=== PATIENT | female | born 1945 | race Caucasian/White ===

== ENCOUNTER 2016-10-02 05:07 | Inpatient (IN) | payer MEDICARE, BC ==
[2016-10-01 10:26] LABS: HEMATOCRIT 34.5 % (36.0-48.0); HEMOGLOBIN 11.4 g/dL (12-16); MCH 31.3 pg (26.0-34.0); MCV 94.8 fL (80.0-100.0); MEAN PLATELET VOLUME 8.7 fL (7.4-10.4); RBC 3.64 10x6/uL (4.00-5.40); RDW 12.8 % (11.5-14.5); WBC 5.7 10x3/uL (4.8-10.8)
[2016-10-01 10:47] LABS: ANION GAP 13.7 mmol/L (8-16); CALCIUM 9.5 mg/dL (8.5-10.1); CARBON DIOXIDE 27.7 mmol/L (21.0-32.0); CREATININE - SERUM 1.3 mg/dL (0.6-1.3); POTASSIUM - SERUM 4.4 mmol/L (3.5-5.1)
[~2016-10-02] VITALS: Ht 167.6 cm; Wt 72.7 kg
--- NOTE | ~2016-10-02 | DS ---
PATIENT:ERICA CANTRELL :45 MEDICAL RECORD: [id number] DISCHARGE SUMMARY ADMISSION DATE: 10/02/16 DISCHARGE DATE: 10/03/16 ADMISSION DIAGNOSES: Lumbar spinal stenosis and foraminal stenosis, L4-L5 on the right. DISCHARGE DIAGNOSES: Status post lumbar laminectomy with synovial cyst resection. HOSPITAL COURSE: The patient was admitted as an outpatient from the outpatient department and underwent a lumbar laminectomy with resection of synovial cyst. She was admitted for 1 day and then had an uneventful postoperative course and was ambulated with physical therapy and felt ready for discharge by postoperative day #2. She tolerated oral diet and activity with physical therapy. She was discharge home and is to follow up with Dr. Hernandez in 1 week for removal of marybeth. She is to follow up with Dr. Hernandez in 4 weeks. No change in medications. TRANSINT:[id number] Voice Confirmation ID: [id number] DOCUMENT ID: [id number] LUNA HERNANDEZ MD CC: [id number] DICTATION DATE: 10/30/16 142 PRESIDING STEWARD: 10/31/16 0147 DIS IN 10/03/16 [id number] [place] [address]
[~2016-10-02 05:07] MED LIST: AMBIEN5 MG PO; ASPIRIN EC81 M1 PO; ATIVAN0.5 MG PO; CALCIUM 600+D T1 TA1 PO; ELAVIL10 MG PO; FLUTICASONE PRO16 GM NASAL; GLYCOLAX527 GM PO; HYZAAR 100-25 T1 TAB PO; LIBRIUM5 MG PO; MOBIC7.5 MG PO; MULTI-DAY VITAM1 TAB PO; NORMODYNE / TR300 MG PO; OMEPRAZOLE20 M1 PO; PEPCID20 MG PO; REMERON15 MG PO; ROBAXIN-750750 MG PO; SYNTHROID100 MCG PO; ULTRACET TABLET1 TAB PO; VITAMIN B-121000 MCG PO; VITAMIN B650 MG PO
[2016-10-02 08:19] VITALS: BP 163/97; BMI 25.8
[2016-10-02 12:50] VITALS: BP 153/89
--- NOTE | 2016-10-02 13:00 | NUR ---
RECIEVED TO ROOM 2211 FROM OR S/P LUMBAR ZAVALA PER DR HERNANDEZ DRESSING TO MIDLINE LUMBAR INTACT
[2016-10-02 15:55] VITALS: Ht 167.6 cm; Wt 72.7 kg
[2016-10-02 16:32] VITALS: BP 151/65
[2016-10-02 20:00] VITALS: BP 170/86
--- NOTE | 2016-10-02 20:15 | NUR ---
REC'D.IN BED DENIES ANY PAIN OR DISCOMFORT AT PRESENT TIME. DRSG. LUMBAR SPINE DRY AND INTACT. DENIES ANY NUMBNESS OR TINGLING TO LOWER EXT.GOOD PULSES PRESENT WILL CONTINUE TO MONITOR FOR ANY CHGES. TO NEUROVASCULAR STATUS AND FOLLOW CURRENT PLAN OF CARE.
[2016-10-03] VITALS: BP 154/75
--- NOTE | 2016-10-03 00:35 | NUR ---
EYES CLOSED RESPIRATIONS WITH EASE AND UNLABORED.
[2016-10-03 04:00] VITALS: BP 156/71
--- NOTE | 2016-10-03 07:30 | NUR ---
AWAKE AND ALERT AT THIS TIME. DRESSING TO BACK C/D/I WITH NO S/S OF INFECTION PRESENT. PAIN LEVEL 2/10. PT ABLE TO AMBULATE WITH STANDBY ASSISTANCE. PT IS HOPEFUL TO D/C HOME TODAY. ASSESSMENT PERFORMED PER FLOWSHEET. CALL LIGHT IN REACH, WILL CONTINUE WITH PLAN OF CARE.
[2016-10-03 08:01] VITALS: BP 148/69
--- NOTE | 2016-10-03 10:20 | NUR ---
DISCHARGE PAPERWORK REVIEWED WITH PT AND IV TO LEFT FOREARM D/C WITH CATH TIP INTACT. PT TO D/C HOME WITH AT THIS TIME. DENIES QUESTIONS OR CONCERNS.
--- NOTE | 2016-10-30 14:30 | OP ---
PATIENT NAME: ERICA CANTRELL MEDICAL RECORD: [id number] :45 LOCATION:[facility] [place].2211 ADMISSION DATE:10/02/16 SURGEON: LUNA HERNANDEZ MD DATE OF OPERATION: 10/02/2016 SURGEON: Luna Hernandez MD PROCEDURES: Lumbar laminectomy at L4-L5 on the right and a redo lumbar laminectomy at L5-S1 on the right, resection of synovial cyst and epidural mass at L4-L5 on the right with microscopic illumination and microdissection of the synovial cyst and epidural mass at L4-L5 on the right. INDICATIONS: Ms. Blum had failed conservative treatment with multiple rounds of epidural steroid shots and physical therapy. Therefore, she was taken to operating room for lumbar spinal stenosis with epidural mass at L4-L5 on the right and L5-S1 on the right secondary to spondylosis. POSTOPERATIVE DIAGNOSIS: Synovial cyst. DESCRIPTION OF TECHNIQUE: After induction of general endotracheal anesthesia, the patient was rolled prone on a Mane frame. Lumbar spine was prepped and draped in usual sterile fashion. Fluoroscopic x-ray and spinal needle localized the L4-L5 interspace on the right side. A series of dilators was used to advance a [employer] retractor at L4-L5 on the right. The level was confirmed with fluoroscopic x-ray. A microscope and [employer] Maur[employer] drill were used to perform a laminectomy, medial facetectomy and foraminotomy at L4-L5 on the right and in the process of accomplishing this, the ligamentum flavum was removed, which was infiltrated with synovial cyst. Appearing material was sent to pathology for diagnosis. The synovial cyst was resected from the dura with the microdissection technique. Next, the laminectomy was carried inferiorly at L5-S1 interspace. Scar tissue was removed and the previous laminotomy was extended. At the conclusion of this, the L4, L5 and S1 nerve roots were decompressed well. Meticulous hemostasis was maintained throughout the wound. The wound was irrigated with copious amounts of Ancef irrigant solution. The synovial cyst was sent to pathology for diagnosis. The wound was irrigated with copious amounts of Ancef irrigant solution. The fascia was closed with 2-0 Vicryl suture. The subdermal layer was closed with 3-0 Vicryl suture. The skin was closed with marybeth. A sterile dressing was applied to the wound. The patient was awakened in good condition and taken to recovery. All counts were reported as correct. Estimated blood loss was minimal. TRANSINT:[id number] Voice Confirmation ID: [id number] DOCUMENT ID: [id number] LUNA HERNANDEZ MD at 1430 CC: [id number] DICTATION DATE: 10/09/161913 DIETETICS PROFESSOR: 10/11/16 0159 DIS IN 10/03/16 [facility] [address] [id number]
== END 2016-10-03 10:38 | disposition home or self-care (01) | DRG 520 ==
LOC: D.OPS 05:07 → D.MS 05:07 → D.PAN 09:30 → D.OPS 10:15 → D.PAN 10:15 → D.MS 12:49 → D.OPS 12:50 → D.MS 12:51
PROVIDERS: Anesthesiology; ADMIT Neurological Surgery
PROC: 00BT0ZZ Excision of Spinal Meninges, Open Approach (ICD-10-PCS; principal; 2016-10-02 09:30)
PROC: 01NB0ZZ Release Lumbar Nerve, Open Approach (ICD-10-PCS; principal; 2016-10-02 09:30)
DX: M54.17 Radiculopathy, lumbosacral region (principal); M71.38 Other bursal cyst, other site

== ENCOUNTER → 2017-09-20 13:09 | Outpatient (CLI) | payer MEDICARE, BC ==
[2016-10-02 15:55] VITALS: BMI 25.8
[2017-09-23 10:12] LABS: ANGIOTENSIN CONVERTING ENZYME 30 U/L (14-82)
[2017-09-24 18:11] LABS: FUNGAL - ASP FLAVUS Negative (Neg:<1:1); FUNGAL - ASP NIGER Negative (Neg:<1:1); FUNGAL - ASPER FUMIGATUS Negative (Neg:<1:1)
== END | disposition home or self-care (01) ==
LOC: D.LAB 13:00
PROVIDERS: Internal Medicine Pulmonary Disease
DX: R91.8 Other nonspecific abnormal finding of lung field (principal)

== ENCOUNTER → 2017-11-26 09:28 | Outpatient (CLI) | payer MEDICARE, BC ==
[2016-10-02 15:55] VITALS: BMI 25.8
== END | disposition home or self-care (01) ==
LOC: D.MRI 09:28
DX: M54.16 Radiculopathy, lumbar region (principal)

== ENCOUNTER → 2018-03-27 10:53 | Outpatient (CLI) | payer MEDICARE, BC ==
[2016-10-02 15:55] VITALS: BMI 25.8
== END | disposition home or self-care (01) ==
LOC: D.CT 10:00
DX: R91.8 Other nonspecific abnormal finding of lung field (principal)

== ENCOUNTER 2018-05-15 12:41 | Emergency (ER) | payer MEDICARE, BC ==
[~2018-05-15] VITALS: Ht 160 cm; Wt 75.0 kg
[2018-05-15 12:46] VITALS: Ht 160 cm; Wt 75.0 kg
[2018-05-15 15:45] VITALS: BP 176/94
== END 2018-05-15 15:45 | disposition home or self-care (01) ==
LOC: D.ER 12:41
DX: S60.222A Contusion of left hand, initial encounter (principal); S80.02XA Contusion of left knee, initial encounter; V49.9XXA Car occupant (driver) (passenger) injured in unspecified traffic accident, initial encounter; Y93.89 Activity, other specified; Y92.410 Unspecified street and highway as the place of occurrence of the external cause; I10 Essential (primary) hypertension

== ENCOUNTER → 2018-07-21 09:52 | Outpatient (CLI) | payer MEDICARE, BC ==
[2018-05-15 12:46] VITALS: BMI 29.2
== END | disposition home or self-care (01) ==
LOC: D.HCCARDIO 09:52
PROVIDERS: ATTEND Internal Medicine Cardiovascular Disease
DX: R06.02 Shortness of breath (principal)

== ENCOUNTER → 2018-09-22 07:43 | Outpatient (CLI) | payer MEDICARE, BC ==
[2018-05-15 12:46] VITALS: BMI 29.2
== END | disposition home or self-care (01) ==
LOC: D.CT 07:43
PROVIDERS: ATTEND Internal Medicine Pulmonary Disease
DX: R91.8 Other nonspecific abnormal finding of lung field (principal)

== ENCOUNTER 2018-12-08 17:36 | Emergency (ER) | payer MEDICARE, BC ==
[~2018-12-08] VITALS: Ht 160 cm; Wt 77.3 kg
[2018-12-08 17:40] VITALS: Ht 160 cm; Wt 77.3 kg
[2018-12-08] MEDS ORDERED: GABAPENTIN100 MG PO (17:44)
[2018-12-08 18:07] LABS: BASOPHILS 0.4 % (0-2); EOSINOPHILS 2.1 % (0-7); HEMATOCRIT 30.7 % (36.0-48.0); HEMOGLOBIN 10.4 g/dL (12-16); IMMATURE GRANULOCYTES 0.1 % (0-5); LYMPHOCYTES 23.3 % (15-50); MCHC 33.9 g/dL (31.0-37.0); MCV 88.5 fL (80.0-100.0); MONOCYTES 10.6 % (2-11); NEUTROPHILS 63.5 % (40-80); RBC 3.47 10x6/uL (4.00-5.40); RDW 13.5 % (11.5-14.5)
[2018-12-08 18:08] LABS: PLATELET COUNT 358 10x3/uL (130-400)
[2018-12-08 18:28] LABS: ALBUMIN 3.6 g/dL (3.4-5.0); ANION GAP 13.3 mmol/L (8-16); BILIRUBIN - TOTAL 0.31 mg/dL (0.2-1.3); CALCIUM 9.1 mg/dL (8.5-10.1); CARBON DIOXIDE 29.9 mmol/L (21.0-32.0); CREATININE - SERUM 0.8 mg/dL (0.6-1.3); POTASSIUM - SERUM 4.2 mmol/L (3.5-5.1); PROTEIN - SERUM 6.9 g/dL (6.4-8.2)
[2018-12-08 20:51] LABS: APPEARANCE CLOUDY (CLEAR); BILIRUBIN NEGATIVE (NEGATIVE); COLOR YELLOW (YELLOW); GLUCOSE NEGATIVE (NEGATIVE); KETONE NEGATIVE (NEGATIVE); NITRITE POSITIVE (NEGATIVE); PROTEIN TRACE mg/dL (NEGATIVE); SPECIFIC GRAVITY 1.005 (1.005-1.020); UROBILINOGEN NORMAL (NORMAL)
[2018-12-08 20:52] LABS: AMORPHOUS SEDIMENT >1+ /lpf (NONE SEEN); BACTERIA MANY /hpf (NONE SEEN); EPITHELIAL CELLS 0-5 /hpf (0-5); MUCUS <1+ /lpf (NONE SEEN); RED CELLS - URINE 0-5 /hpf (0-5)
[2018-12-08] MEDS ORDERED: OMNICEF300 MG PO (21:09)
[2018-12-08 21:40] VITALS: BP 152/84
== END 2018-12-08 21:40 | disposition home or self-care (01) ==
LOC: D.ER 17:36
PROVIDERS: Family Medicine
DX: E87.1 Hypo-osmolality and hyponatremia (principal); R30.0 Dysuria; K21.9 Gastro-esophageal reflux disease without esophagitis; I10 Essential (primary) hypertension

== ENCOUNTER → 2019-04-13 09:40 | Outpatient (CLI) | payer MEDICARE, BC ==
[2018-12-08 17:40] VITALS: BMI 30.1
[~2019-04-13 09:40] MED LIST changes: +GABAPENTIN100 MG PO; +OMNICEF300 MG PO
== END | disposition home or self-care (01) ==
LOC: D.CT 09:40
PROVIDERS: ATTEND Internal Medicine Pulmonary Disease
DX: R91.8 Other nonspecific abnormal finding of lung field (principal)

== ENCOUNTER → 2019-10-08 07:53 | Outpatient (CLI) | payer MEDICARE, BC ==
[2018-12-08 17:40] VITALS: BMI 30.1
== END | disposition home or self-care (01) ==
LOC: D.HCCARDIO 07:53
PROVIDERS: ATTEND Internal Medicine Cardiovascular Disease
DX: I10 Essential (primary) hypertension (principal)

== ENCOUNTER → 2019-10-21 10:24 | Outpatient (CLI) | payer MEDICARE, BC ==
[2018-12-08 17:40] VITALS: BMI 30.1
== END | disposition home or self-care (01) ==
LOC: D.CT 10:24
PROVIDERS: ATTEND Internal Medicine Pulmonary Disease
DX: R91.8 Other nonspecific abnormal finding of lung field (principal)

== ENCOUNTER → 2020-05-30 11:18 | Outpatient (CLI) | payer MEDICARE, BC ==
[2018-12-08 17:40] VITALS: BMI 30.1
== END | disposition home or self-care (01) ==
LOC: D.HCCECHO 11:18
PROVIDERS: ATTEND Internal Medicine Cardiovascular Disease
DX: I34.0 Nonrheumatic mitral (valve) insufficiency (principal)